=== PATIENT | female | born 1935 | race Caucasian/White ===

== ENCOUNTER 2017-01-03 07:50 | Day surgery (SDC) | payer OTHER ==
[2017-01-03] MEDS ORDERED: TETRACAINE 0.5% OPHTH 1 DOSE AFFEYE ONE ×2 (07:52→10:30)
[2017-01-03] MEDS ORDERED: VIGAMOX 0.5% OPHTH 1 DOSE AFFEYE ONE ×3 (07:53→08:03)
[2017-01-03] MEDS ORDERED: PROLENSA OPHTH 1 DOSE AFFEYE ONE (08:04)
[2017-01-03] MEDS ORDERED: ALPHAGAN-P OPHTH 1 DOSE AFFEYE ONE (08:05)
[2017-01-03] MEDS ORDERED: NS 500 ML IV 500 ML IV ONE (08:06)
[2017-01-03] MEDS ORDERED: CYCLOGYL 1% OPHTH 1 DOSE OP ONE ×5 (08:06→08:20)
[2017-01-03] MEDS ORDERED: AK-DILATE 2.5% OPHTH 1 DOSE OP ONE ×5 (08:11→08:20)
[2017-01-03] MEDS ORDERED: MYDRIACIL OPHTH 1 DOSE AFFEYE ONE ×5 (08:16→08:20)
[2017-01-03] MEDS ORDERED: BETADINE OPHTH SOLN 5% EACHEYE ONE (10:30)
[2017-01-03] MEDS ORDERED: DUOVISC IO ONE ×2 (10:41→10:51)
[2017-01-03] MEDS ORDERED: XYLOCAINE-MPF 1% IJ ONE ×2 (10:41→10:51)
[2017-01-03] MEDS ORDERED: TobraDEX OPHTH SUSP 1 DOSE AFFEYE ONE ×2 (10:41→11:07)
[2017-01-03] MEDS ORDERED: ADRENALINE CHL INJ IJ ONE ×2 (10:41→10:51)
[2017-01-03] MEDS ORDERED: BSS OPHTH (PLAIN) 500 ML with VANCOMYCIN HCL 500 MG VIAL 25 MG, ADRENALINE CHL INJ 1 MG IR ONE ×6 (10:42)
[2017-01-03 12:44] VITALS: BP 128/74
[2017-01-03] MEDS ORDERED: VERSED ONE (15:38)
[2017-01-03] MEDS ORDERED: DIPRIVAN VIAL ONE (15:38)
== END 2017-01-03 11:35 | disposition home or self-care (01) ==
LOC: SURG1 07:50
PROVIDERS: ATTEND Ophthalmology
PROC: 08RJ3JZ Replacement of Right Lens with Synthetic Substitute, Percutaneous Approach (ICD-10-PCS; principal; 2017-01-03 11:00)
PROC: 08DJ3ZZ Extraction of Right Lens, Percutaneous Approach (ICD-10-PCS; principal; 2017-01-03 11:00)
DX: H25.11 Age-related nuclear cataract, right eye (principal); H25.011 Cortical age-related cataract, right eye
CPT/HCPCS: 99100; A4217; J0170; J2250; J3370; J3490

== ENCOUNTER 2017-02-07 10:57 | Day surgery (SDC) | payer OTHER ==
[2017-02-07] MEDS ORDERED: TETRACAINE 0.5% OPHTH 1 DOSE AFFEYE ONE ×2 (12:30→15:28)
[2017-02-07] MEDS ORDERED: VIGAMOX 0.5% OPHTH 1 DOSE AFFEYE ONE ×5 (12:31→16:02)
[2017-02-07] MEDS ORDERED: PROLENSA OPHTH 1 DOSE AFFEYE ONE (12:42)
[2017-02-07] MEDS ORDERED: ALPHAGAN-P OPHTH 1 DOSE AFFEYE ONE (12:43)
[2017-02-07] MEDS ORDERED: VISINE-A OPHTH 1 DOSE AFFEYE ONE (12:44)
[2017-02-07] MEDS ORDERED: MYDRIACIL OPHTH 1 DOSE AFFEYE ONE ×4 (12:45→12:48)
[2017-02-07] MEDS ORDERED: CYCLOGYL 1% OPHTH 1 DOSE OP ONE ×4 (12:45→12:48)
[2017-02-07] MEDS ORDERED: AK-DILATE 2.5% OPHTH 1 DOSE OP ONE ×4 (12:45→12:48)
[2017-02-07] MEDS ORDERED: NS 500 ML IV 500 ML IV ONE (12:58)
[2017-02-07] MEDS ORDERED: DIPRIVAN VIAL ONE (13:36)
[2017-02-07] MEDS ORDERED: AK-DILATE 10% OPHTH 1 DOSE AFFEYE ONE ×2 (14:00→14:21)
[2017-02-07] MEDS ORDERED: BETADINE OPHTH SOLN 5% EACHEYE ONE (15:28)
[2017-02-07] MEDS ORDERED: ADRENALINE CHL INJ IJ ONE ×2 (15:30→15:51)
[2017-02-07] MEDS ORDERED: DUOVISC IO ONE ×2 (15:30→15:51)
[2017-02-07] MEDS ORDERED: XYLOCAINE-MPF 1% IJ ONE ×2 (15:30→15:51)
[2017-02-07] MEDS ORDERED: BSS OPHTH (PLAIN) 500 ML with VANCOMYCIN HCL 500 MG VIAL 25 MG, ADRENALINE CHL INJ 1 MG IR ONE ×6 (15:31)
[2017-02-07 17:35] VITALS: BP 144/58
== END 2017-02-07 16:30 | disposition home or self-care (01) ==
LOC: SURG1 10:57
PROVIDERS: ATTEND Ophthalmology
PROC: 08R Eye, Replacement (ICD-10-PCS; principal; 2017-02-07 04:45)
PROC: 08DK3ZZ Extraction of Left Lens, Percutaneous Approach (ICD-10-PCS; principal; 2017-02-07 04:45)
DX: H25.12 Age-related nuclear cataract, left eye (principal); H25.012 Cortical age-related cataract, left eye
CPT/HCPCS: 99100; A4217; J0170; J3370; J3490